=== PATIENT | female | born 1985 | race African-American/Black ===

== ENCOUNTER 2016-11-16 21:38 | Emergency (ER) | payer MEDICAID, MEDICARE ==
--- NOTE | 2016-11-16 21:54 | ER Document Report ---
ED Medical Screen (RME) - General Stated Complaint: DEPRESSION Mode of Arrival: Ambulatory Information source: Patient Notes: pt c/o feeling depressed with suicidal ideation. Patient denies any previous suicide attempts. Patient states she has a plan to stab herself. Patient reports increased stress at home. hx: None I have greeted and performed a rapid initial assessment of this patient. A comprehensive ED assessment and evaluation of the patient, analysis of test results and completion of the medical decision making process will be conducted by additional ED providers. TRAVEL OUTSIDE OF THE [place] IN LAST 30 DAYS: No - Related Data Allergies/Adverse Reactions: No Known Allergies Allergy (Unverified 09/11/14 16:00) Past Medical History - Immunizations Hx Diphtheria, Pertussis, Tetanus Vaccination: Yes Physical Exam - Vital signs Vitals: Temp Pulse Resp BP Pulse Ox 98.0 F 71 18 129/83 H 99 11/16/16 21:44 11/16/16 21:44 11/16/16 21:44 11/16/16 21:44 11/16/16 21:44 - Psychological Associated symptoms: Depressed Course - Vital Signs Vital signs: Temp Pulse Resp BP Pulse Ox 98.0 F 71 18 129/83 H 99 11/16/16 21:44 11/16/16 21:44 11/16/16 21:44 11/16/16 21:44 11/16/16 21:44
[2016-11-16] MEDS ORDERED: ONDANSETRON 4 MG TAB.RAPDIS PO ONE (21:57)
[2016-11-16] MEDS ORDERED: ACETAMINOPHEN 325 MG TABLET PO ONE (21:57)
--- NOTE | 2016-11-16 23:40 | ER Document Report ---
ED Psych Disorder / Suicide - General Chief Complaint: Suicidal Ideation Stated Complaint: DEPRESSION Time seen by provider: 23:40 Mode of Arrival: Ambulatory Information source: Patient TRAVEL OUTSIDE OF THE [place] 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, it causes her a significant amount of grief and she specifically stated "I feel like if I have to continue doing this I would just be better off killing myself", patient also stated when asked if she had a plan "well I don't have access to a gun so he decided would have to stab myself", patient has no history of mental illness previously, she denies causing herself any harm to date, patient otherwise denies any medical problems - Related Data Allergies/Adverse Reactions: No Known Allergies Allergy (Unverified 09/11/14 16:00) Home Medications: Current Home Medications No Home Medications 11/17/16 [History] Past Medical History - General Information source: Patient - Social History Smoking Status: Never Smoker Frequency of alcohol use: Occasional Drug Abuse: None Family History: Reviewed & Not Pertinent Patient has suicidal ideation: No Renal/ Medical History: Denies: Hx Peritoneal Dialysis - Immunizations Hx Diphtheria, Pertussis, Tetanus Vaccination: Yes Review of Systems - Review of Systems Constitutional: No symptoms reported EENT: No symptoms reported Cardiovascular: No symptoms reported Respiratory: No symptoms reported Gastrointestinal: No symptoms reported Genitourinary: No symptoms reported Female Genitourinary: No symptoms reported Musculoskeletal: See HPI Skin: No symptoms reported Hematologic/Lymphatic: No symptoms reported Neurological/Psychological: No symptoms reported -: Yes All other systems reviewed and negative Physical Exam - Vital signs Vitals: Temp Pulse Resp BP Pulse Ox 98.0 F 71 18 129/83 H 99 11/16/16 21:44 11/16/16 21:44 11/16/16 21:44 11/16/16 21:44 11/16/16 21:44 Interpretation: Normal - General General appearance: Appears well, Alert - HEENT Head: Normocephalic, Atraumatic Eyes: Normal Pupils: PERRL - Respiratory Respiratory status: No respiratory distress Chest status: Nontender Breath sounds: Normal Chest palpation: Normal - Cardiovascular Rhythm: Regular Heart sounds: Normal auscultation Murmur: No - Abdominal Inspection: Normal Distension: No distension Bowel sounds: Normal Tenderness: Nontender Organomegaly: No organomegaly - Back Back: Normal, Nontender - Extremities General upper extremity: Nontender, Normal color, Normal temperature General lower extremity: Normal inspection, Nontender, Normal color, Normal ROM , Normal temperature, Normal weight bearing. No: Slava's sign Notes: Bilateral upper extremity atrophy - Neurological Neuro grossly intact: Yes Cognition: Normal Orientation: AAOx4 [place] Coma Scale Eye Opening: Spontaneous [place] Coma Scale Verbal: Oriented [place] Coma Scale Motor: Obeys Commands [place] Coma Scale Total: 15 Speech: Normal Motor strength normal: LUE, RUE, LLE, RLE Sensory: Normal - Psychological Associated symptoms: Depressed, Flat affect - Skin Skin Temperature: Warm Skin Moisture: Dry Skin Color: Normal Course - Re-evaluation Re-evalutation: 11/17/16 01:18 Patient presents to the emergency room with complaint of suicidal ideation with plan to stab herself, she has no history of mental illness, this is related to an ongoing issue with her ex and coparenting, patient was placed on IVC paper work for further evaluation and treatment by the mental health team, she is otherwise medically cleared for discharge or transfer - Vital Signs Vital signs: Temp Pulse Resp BP Pulse Ox 98.0 F 71 18 129/83 H 99 11/16/16 21:44 11/16/16 21:44 11/16/16 23:30 11/16/16 21:44 11/16/16 21:44 - Laboratory Result Diagrams: 11/16/16 00:11 Laboratory results interpreted by me: 11/17/16 00:00 Urine Ketones TRACE H - EKG Interpretation by Mi EKG shows normal: Sinus rhythm Rate: Normal Rhythm: NSR Discharge - Discharge Clinical Impression: Suicidal ideation Condition: Stable Disposition: PSYCH HOSP/UNIT
[2016-11-17 00:15] LABS: APPEARANCE,URINE CLEAR; BILIRUBIN,URINE NEGATIVE (NEGATIVE); GLUCOSE, URINE NEGATIVE (NEGATIVE); KETONES,URINE TRACE mg/dL (NEGATIVE); LEUKOCYTE ESTERASE,URINE NEGATIVE (NEGATIVE); NITRITE,URINE NEGATIVE (NEGATIVE); PROTEIN,URINE NEGATIVE (NEGATIVE); UROBILINOGEN,URINE NEGATIVE mg/dL (<2.0)
[2016-11-17 00:23] LABS: ABSOLUTE EOSINOPHILS # (AUTO) 0.1 10^3/uL (0.0-0.6); ABSOLUTE LYMPHOCYTES (AUTO) 2.3 10^3/uL (0.5-4.7); ABSOLUTE MONOCYTES (AUTO) 0.6 10^3/uL (0.1-1.4); BASOPHILS % (AUTO) 0.5 % (0-2); EOSINOPHILS % (AUTO) 1.7 % (0-6); HEMATOCRIT 43.3 % (36.0-47.0); HEMOGLOBIN 13.9 g/dL (12.0-15.5); HGB HCT DIFFERENCE -1.6; LYMPHOCYTES % (AUTO) 28.3 % (13-45); MEAN CORPUSCULAR HEMOGLOBIN 28.5 pg (27.0-33.4); MEAN CORPUSCULAR HGB CONC 32.2 g/dL (32.0-36.0); MEAN CORPUSCULAR VOLUME 89 fl (80-97); RED BLOOD COUNT 4.88 10^6/uL (3.72-5.28); RED CELL DISTRIBUTION WIDTH 13.3 % (11.5-14.0); SEGMENTED NEUTROPHILS % (AUTO) 61.5 % (42-78); WHITE BLOOD COUNT 8.1 10^3/uL (4.0-10.5)
[2016-11-17 00:30] LABS: URINE BARBITURATES SCREEN NEGATIVE; URINE METHADONE SCREEN NEGATIVE; URINE PHENCYCLIDINE SCREEN NEGATIVE
--- NOTE | 2016-11-17 08:17 | EKG REPORT ---
SEVERITY:- NORMAL ECG - SINUS RHYTHM : Confirmed by: Panda Mcintosh MD 17-Nov-2016 08:16:00
--- NOTE | 2016-11-17 11:09 | ER Document Report ---
Doctor's Note Notes: 11/17/16 11:08 Rounds: Chart reviewed and patient interviewed. Patient is being evaluated for depression and suicidal ideation. Labs are normal except for being positive for marijuana. I'll signs are normal. Patient appears to be medically stable for transfer or discharge. Heather Ramirez M.D.
[2016-11-17 11:55] VITALS: BP 104/59
== END 2016-11-17 12:45 ==
LOC: ER 21:38
DX: R45.851 Suicidal ideations (principal); Z63.5 Disruption of family by separation and divorce; F32.9 Major depressive disorder, single episode, unspecified
CPT/HCPCS: 93005; 99285; 36415; 85025; 81001; 80307; 93010; A9270 ×2; S0119